=== PATIENT | female | born 1960 | race Caucasian/White ===

== ENCOUNTER 2018-05-21 09:18 | Outpatient (CLI) | payer OTHER ==
--- NOTE | 2018-05-21 09:40 | RAD ---
CHEST TWO VIEWS: History: Cough. Comparison: None. FINDINGS: There are sternotomy wires. Heart is enlarged and pulmonary vascular is prominent. There are pleural and parenchymal changes in the left lung base. Additionally, no diffuse interstitial opacification li shelley due to edema. No pneumothorax. IMPRESSION: Congestive heart failure. POS: [facility]
== END 2018-05-21 09:19 | disposition home or self-care (01) ==
LOC: BICRAD 09:18
PROVIDERS: ATTEND Physician Assistant Medical
DX: R05 Cough (principal); I25.2 Old myocardial infarction; I50.9 Heart failure, unspecified; Z95.1 Presence of aortocoronary bypass graft
CPT/HCPCS: 71046

== ENCOUNTER 2018-06-29 16:01 | Observation (INO) | payer BC, OTHER ==
[2018-06-29 17:18] LABS: #Basophils 0.1 thou/uL (0.0-0.2); #Eosinphils 0.4 thou/uL (0.0-0.7); #Lymphocytes 2.4 thou/uL (1.20-3.40); #Monocytes 0.8 thou/uL (0.11-0.59); #Neutrophils 6.2 thou/uL (1.40-6.50); %Basophils 0.5 % (0.0-1.0); %Eosinophils 3.8 % (0.0-10.0); %Lymphocytes 24.7 % (21.0-51.0); %Monocytes 7.8 % (0.0-10.0); %Neutrophils 63.1 % (42.0-75.0); Hemoglobin 12.8 g/dL (12.0-16.0); Mean Corpuscular HGB CONC 32.7 g/dL (32.0-36.0); Mean Corpuscular Hemoglobin 27.7 pg (27.0-31.0); Mean Corpuscular Volume 84.6 fL (78.0-98.0); Platelet Count 382 thou/uL (130-400); RBC Distribution Width 13.5 % (11.5-14.5); Red Blood Cell (RBC) Count 4.64 mill/uL (4.20-5.40); White Blood Cell (WBC) Count 9.8 thou/uL (4.8-10.8)
--- NOTE | 2018-06-29 17:32 | RAD ---
EXAM: Chest one view: HISTORY: Coughing, pop in right eye with right-sided headaches COMPARISON: 05/21/2018 FINDINGS: Postop midline sternotomy and surgical changes in the region of the left atrium. Heart size: Within normal limits. The lungs: Clear of acute process. No evidence for pneumonia, pleural effusion, acute edema, or pneumothorax, or other significant acute process. IMPRESSION: No significant acute intrathoracic disease. Resolution of the previous noted vascular congestion and pleural effusions and interstitial edema.
[2018-06-29 17:37] LABS: Bilirubin Negative (Negative); Blood, Urine Trace (Negative); Clarity CLEAR (Clear); Glucose, Urine (Dipstick) 250 mg/dL (Negative); Leukocyte Negative (Negative); Nitrite Negative (Negative); Protein, Urine (Dipstick) Negative (Neg-Trace); Specific Gravity, Urine 1.023 (1.002-1.036); Urobilinogen 0.2 mg/dL (0.2-1.0)
[2018-06-29 17:51] LABS: Bacteria/HPF None Seen HPF (None Seen); Hyaline Casts/LPF 4-6 HYALINE CAST LPF (0-3 Hyaline); Pathc Cast-AUWi Flag 0.68 (0-2.49); WBC/HPF 0-3 HPF (0-3)
--- NOTE | 2018-06-29 17:56 | CT ---
CT BRAIN 06/29/18 HISTORY: Right sided eye vision loss and right sided headache. COMPARISON: Comparison made to previous exam from 09/24/14. Noncontrast enhanced CT images of the brain obtained. The brain is unremarkable. No evidence of intracranial masses, hemorrhages, strokes or contusions see n. Ventricles are of normal size. IMPRESSION: Unremarkable CT brain. No acute intracranial pathology seen. POS: [facility]
[2018-06-29 18:03] LABS: ALT (SGPT) 13 U/L (8-55); AST (SGOT) 17 U/L (5-34); Albumin 4.5 g/dL (3.5-5.0); Alkaline Phosphatase 87 U/L (40-150); Anion Gap 15 mmol/L (10-20); BUN (Urea Nitrogen) 24 mg/dL (9.8-20.1); Bilirubin, Total 0.5 mg/dL (0.2-1.2); CK (CPK) 45 U/L (29-168); Calc. Creatinine Clearance 0 mL/min (70-130); Calcium 9.8 mg/dL (7.8-10.44); Carbon Dioxide 25 mmol/L (22-29); Chloride 103 mmol/L (98-107); Estimated GFR-MDRD 60; Globulin 3.2 g/dL (2.4-3.5); Glucose 62 mg/dL (70-105); Potassium 4.2 mmol/L (3.5-5.1); Protein, Total 7.7 g/dL (6.0-8.3); Sodium 139 mmol/L (136-145)
--- NOTE | 2018-06-29 18:26 | PDOC.FPRHP ---
- History of Present Illness Chief Complaint: right eye changes, R arm weakness History of Present Illness: 57 yo F with hx of DM1 presents to ED for R eye vision changes and R upper extremity weakness. Sxs started two weeks ago, after "coughing fit". Immediately after patient started seeing "red thread blood vessels" in her right eye. Thought she just bursted a blood vessel do didn't seek care until today. She denies ocular trauma, complete vision loss, but stated noticing difficulty seeing things out of R eye today. She has a hx of vitreous hemorrhage of the L eye due to poorly control DM1 at that time. In regards to her R arm weakness, this was noticed by PCP today in addition to R facial droop which was concerning and so she instructed her to come to the ED. Pt denies speech slurring but endorses difficulty finding words. In addition patient has presence of lower facial droop but she is unsure of how long these sxs have all been going on for. is unable to tell as well. She denies hx of prior stroke. Endorses headaches w/ photophobia ED Course: In ED, negative w/u for stroke - Allergies/Adverse Reactions Allergies Allergy/AdvReac Type Severity Reaction Status Date / Time erythromycin base Allergy Anaphylaxis Verified 09/24/14 21:48 morphine Allergy Verified 09/24/14 21:48 promethazine [From Phenergan] AdvReac Mild Headache Verified 06/30/18 00:04 - Home Medications Medication Instructions Recorded Confirmed Type Aspirin [Ecotrin Low Strength] 81 mg PO DAILY 09/24/14 06/30/18 History Atorvastatin Calcium [Lipitor] 20 mg PO DAILY 06/30/18 06/30/18 History Carvedilol 3.125 mg PO BID 06/30/18 06/30/18 History Ferrous Sulfate [Iron] 325 mg PO TID 06/30/18 06/30/18 History Furosemide [Lasix] 20 mg PO BID 06/30/18 06/30/18 History Insulin Aspart [Novolog] 0 units SC ASDIR 06/30/18 06/30/18 History Levothyroxine Sodium [Synthroid] 25 mcg PO DAILY 06/30/18 06/30/18 History Sacubitril/Valsartan 49/51 1 tab PO BID 06/30/18 06/30/18 History [Entresto 49 mg-51 mg Tablet] Spironolactone [Aldactone] 25 mg PO DAILY 06/30/18 06/30/18 History Ticagrelor [Brilinta] 90 mg PO BID 06/30/18 06/30/18 History - History PMHx: CAD, Failed CABG with stent x3, CA, CHF, hypothyroidism PSHx: Cholecystectomy, BTL, hx of ureteral stent (now removed), Impella FHx:extensive CAD in family Social: denies t/e/d - Review of Systems General: denies: fever/chills, weight/appetite/sleep changes, night sweats Eyes: reports: vision changes (floaters in R eye, dec vision), other. denies: eye pain ENT: denies: rhinorrhea Respiratory: denies: cough, congestion, shortness of breath Cardiovascular: denies: chest pain, palpitation, edema Gastrointestinal: denies: nausea, vomiting Skin: denies: lesions Musculoskeletal: denies: pain, tenderness Neurological: reports: weakness Psychological: reports: other (difficulty with word finding) - Vital signs BP: [125/62] HR: [66] RR: [19] Tmax: [98.2] Pox: [98]% on [RA] Wt: [66kg] - Physical Exam Constitutional: NAD, awake, alert and oriented, well developed HEENT: normocephalic and atraumatic, PERRLA, EOMI, conjunctiva clear, no scleral icterus, MMM -HEENT: dec. visual acuity in upper and peripheral kaufman R lower facial droop Dec sensation in R temporal face Neck: supple, trachea midline Chest: no-tender to palpation Heart: RRR, normal S1/S2, no murmurs/rubs/gallops Lungs: CTAB, no respiratory distress Abdomen: soft, non-tender, bowel sounds present Musculoskeletal: normal structure, normal tone -Musculoskeletal: 5/5 in all extremities Neurological: no focal deficit Skin: no rash/lesions, good turgor FMR H&P: Results - Labs Result Diagrams: 06/29/18 17:12 06/30/18 04:41 Lab results: WBC 9.8 thou/uL (4.8-10.8) 06/29/18 17:12 Hgb 12.8 g/dL (12.0-16.0) 06/29/18 17:12 Hct 39.3 % (36.0-47.0) 06/29/18 17:12 MCV 84.6 fL (78.0-98.0) 06/29/18 17:12 Plt Count 382 thou/uL (130-400) 06/29/18 17:12 Neutrophils % 63.1 % (42.0-75.0) 06/29/18 17:12 Sodium 139 mmol/L (136-145) 06/29/18 17:12 Potassium 4.2 mmol/L (3.5-5.1) 06/29/18 17:12 Chloride 103 mmol/L (98-107) 06/29/18 17:12 Carbon Dioxide 25 mmol/L (22-29) 06/29/18 17:12 BUN 24 mg/dL (9.8-20.1) H 06/29/18 17:12 Creatinine 0.95 mg/dL (0.6-1.1) 06/29/18 17:12 Glucose 62 mg/dL (70-105) L 06/29/18 17:12 Calcium 9.8 mg/dL (7.8-10.44) 06/29/18 17:12 Total Bilirubin 0.5 mg/dL (0.2-1.2) 06/29/18 17:12 AST 17 U/L (5-34) 06/29/18 17:12 ALT 13 U/L (8-55) 06/29/18 17:12 Alkaline Phosphatase 87 U/L (40-150) 06/29/18 17:12 Creatine Kinase 45 U/L (29-168) 06/29/18 17:12 Serum Total Protein 7.7 g/dL (6.0-8.3) 06/29/18 17:12 Albumin 4.5 g/dL (3.5-5.0) 06/29/18 17:12 Urine Ketones Negative mg/dL (Negative) 06/29/18 17:06 Urine Blood Trace (Negative) H 06/29/18 17:06 Urine Nitrite Negative (Negative) 06/29/18 17:06 Ur Leukocyte Esterase Negative (Negative) 06/29/18 17:06 Urine RBC 4-6 HPF (0-3) 06/29/18 17:06 Urine WBC 0-3 HPF (0-3) 06/29/18 17:06 Ur Squamous Epith Cells 4-6 HPF (0-3) H 06/29/18 17:06 Urine Bacteria None Seen HPF (None Seen) 06/29/18 17:06 - Radiology Interpretation CT scan - head Status: image reviewed by me, report reviewed by me Additional comment: negative for ICH Chest x-ray Status: report reviewed by me FMR H&P: A/P - Problem List (1) Change in vision Current Visit: Yes Status: Acute Code(s): H53.9 - UNSPECIFIED VISUAL DISTURBANCE (2) Heart failure Current Visit: Yes Status: Acute Code(s): I50.9 - HEART FAILURE, UNSPECIFIED (3) History of CA (myocardial infarction) Current Visit: Yes Status: Acute Code(s): I25.2 - OLD MYOCARDIAL INFARCTION (4) Failed CABG (coronary artery bypass graft) Current Visit: Yes Status: Acute Code(s): T82.218A - [facility] COMPL OF CORONARY ARTERY BYPASS GRAFT, INIT ENCNTR (5) History of coronary artery stent placement Current Visit: Yes Status: Acute Code(s): Z95.5 - PRESENCE OF CORONARY ANGIOPLASTY IMPLANT AND GRAFT (6) CAD (coronary artery disease) Current Visit: No Status: Acute Code(s): I25.10 - ATHSCL HEART DISEASE OF [place] CORONARY ARTERY W/O ANG PCTRS (7) HTN (hypertension) Current Visit: No Status: Acute Code(s): I10 - ESSENTIAL (PRIMARY) HYPERTENSION (8) Type 1 diabetes mellitus Current Visit: No Status: Acute - Plan #R facial droop, vision changes -Arm/leg weakness resolved on my exam. Acute vs. chronic presence of R facial droop. CTH negative, however cannot r/o ischmemic stroke in light of patient's multiple risk factors -A1c & lipid panel to risk stratify -MRI brain in AM -ASA, statin, neuro checks, pt not hypertensive in ED, home antiplatelet -If w/u neg. consider complex migraine #R eye: dec in acuity -Ddx: vitreous hemorrhage -Talked with Dr. Bolaños who recommended outpt follow up upon discharge #Hx of CAD with stent placement -Continue home lasix & spironolactone #HF -Fluid restrict diet #DM1 -Continue using home insulin pump, but continue with accuchecks ACHS -CC diet #Hypothyroidism -Continue home meds dvt ppx: SCD gi ppx: not indicated PCP: Dr. Singleton from [facility] Dispo: <[address] Arita FMR H&P: Upper Level - Pertinent history 57 yo CF with PMH T1DM, previous CA/CAD s/p failed 3vCABG and stent x3 placement , and HTN presenting with vision changes. Pt notes that two weeks ago she was coughing, felt a pop in her right eye, saw some floaters and notes continued blurred vision since that time. Pt denies pain, complete vision loss, or darkening of kaufman. Pt then states she had some right arm weakness, right sided facial droop, and decreased facial sensation at PCP's office today. Highest NIH score in the ER was 0. - Pertinent findings VSS Gen: pleasant in NAD CV: RRR no murmur Resp: CTAB Neuro: mild right facial droop, strength 5/5 all extr - Plan Date/Time: 06/29/181825 I, Guanaco Krueger MD PGY3, have evaluated this patient and agree with findings/ plan as outlined by improvement intern resident. Pertinent changes/additions are listed here. 1. Right hemianopsia possibly 2/2 CVA -Pt presents with right sided hemianopsia and right sided facial droop. Initial CT brain negative for acute process. -Will admit pt to stroke floor and obtain MRI brain. -Consider ophthalmology consultation as symptoms may be secondary to ocular pathology. See improvement intern note for chronic medical problems. FULL code PPx: Lovenox for VTE, no GI indicated. disposition: Admit to stroke observation for anticipated length of stay less than two midnights, pending clinical course. Addendum - Attending - Attending Attestation Date/Time: 06/29/18 [id number] I personally evaluated the patient and discussed the management with Dr. Diaz I agree with the History, Examination, Assessment and Plan documented above with any addition or exceptions noted below. 57 yo IDDM right handed female sent in by PCP to ER for further evaluation right eye visual loss and right sided facial weakness for last 2 weeks. Patient decided to seek medical attention as she was not getting better. Care delayed due to wanting to avoid being hospitalized. Patient reports coughing hard 2 weeks ago and "felt something in her eye" then diminished visual acuity and seeing "thread" in upper mid visual field she has had photophobia and headache. Patient notable vitreous hemorrhage [place] in 2015 with similar presentation and hospitalization r/o left sided CVA . Upon further questioning of patient she endorses mental confusion with slight anomic aphasia and loss sensation temporal right side. At time exam no extremity drift or weakness noted however ER reports drift right arm . Exam facial asymmetry mild right facial paralysis. PMHX; IDDM since early 20's had CA and stent placement 10 years ago , 9 months ago [facility] had failed 3V CABG then stent placement and massive post operative CA requiring impella device. Patient with insulin pump with good BS control continous glucose monitor most recnt HgA1c 7.0. Patient with blunted hypogylcemic symptoms by history. Patient Established with Dr Swanson currently on Brilinta, ASA, aldactone,entresto,furosemide patient relates an recent EF <25% and will be considered for life vest. Patient also relates history scar tissue left lung and increased susceptibility to Pneumonia consider Pneumovax 23 and [id number] plus annual flu vaccine if not current. Patient to stroke unit for continued observation rec suspend insulin pump if needs NPO status rec am MRI brain and orbit anticipate will need urgent Ophthalmology consult for office exam when cleared from CVA. Some symptoms may be related to vitreous bleed with secondary complex migraine verse CVA or stroke mimic. Direct eye exam non remarkable to me however strongly suspect probable vitreous hemorrhage discussed with Ophthalmology and will have urgent outpatient f/u pending MRI result.
[2018-06-29] MEDS ORDERED: Acetaminophen 325 MG TAB ONE (22:43)
[2018-06-29 23:56] VITALS: BMI 27.5
[2018-06-30] MEDS ORDERED: INSULIN ASPART SC SCH (00:30)
[2018-06-30 05:34] LABS: Anion Gap 11 mmol/L (10-20); BUN (Urea Nitrogen) 25 mg/dL (9.8-20.1); Calc. Creatinine Clearance 69 mL/min (70-130); Calcium 9.4 mg/dL (7.8-10.44); Carbon Dioxide 28 mmol/L (22-29); Cardiac Risk 3.6 (Less than 4.5); Chloride 102 mmol/L (98-107); Cholesterol 118 mg/dl (< 200 Desired); Estimated GFR-MDRD 63; Glucose 149 mg/dL (70-105); HDL Cholesterol 33 mg/dL (>60 Neg Risk); LDL Cholesterol, Calculated 59 mg/dL; Potassium 3.9 mmol/L (3.5-5.1); Sodium 137 mmol/L (136-145); Triglycerides 129 mg/dL (Less than 150)
[2018-06-30] MEDS ORDERED: Levothyroxine Sodium 25 MCG TAB PO SCH (06:00)
--- NOTE | 2018-06-30 06:54 | PDOC.FM ---
- Subjective Subjective: Ms. Matute notes continued symptoms. Continues to have R sided face/eye pain. She has had this for two weeks she said. Continued decreased sensation to R side of face. - Objective MAR Reviewed: Yes Vital Signs & Weight: Vital Signs (12 hours) Temp Pulse Resp BP Pulse Ox 06/30/18 04:00 97.5 F L 73 18 127/58 L 96 06/29/18 23:30 98.2 F 66 19 125/62 98 Weight Weight 66.026 kg I&O: 06/28/18 06/29/18 06/30/18 06:59 06:59 06:59 Intake Total 200 Balance 200 Result Diagrams: 06/29/18 17:12 06/30/18 04:41 Phys Exam - Physical Examination Constitutional: NAD HEENT: PERRLA Respiratory: clear to auscultation bilateral Cardiovascular: RRR, no significant murmur Gastrointestinal: soft, non-tender, positive bowel sounds Musculoskeletal: no edema decreased sensation R V2 face, mild R lip droop, BUE 5/5 strength Psychiatric: normal affect Skin: normal turgor Dx/Plan (1) Change in vision Code(s): H53.9 - UNSPECIFIED VISUAL DISTURBANCE Status: Acute (2) Heart failure Code(s): I50.9 - HEART FAILURE, UNSPECIFIED Status: Acute (3) CAD (coronary artery disease) Code(s): I25.10 - ATHSCL HEART DISEASE OF [place] CORONARY ARTERY W/O ANG PCTRS Status: Acute (4) HTN (hypertension) Code(s): I10 - ESSENTIAL (PRIMARY) HYPERTENSION Status: Acute (5) Hypothyroidism Code(s): E03.9 - HYPOTHYROIDISM, UNSPECIFIED Status: Acute (6) Type 1 diabetes mellitus Status: Acute - Plan Plan: R facial droop, vision changes -Arm/leg weakness resolved on exam -A1c 7.0. -MRI brain pending -ASA, statin, neuro checks -Differential includes trigeminal neuralgia, migraine secondary to vision change , vitreous hemorrhage -Dr. Bolaños recommended outpt follow up upon discharge Hx of CAD with stent placement -Continue home lasix & spironolactone HF -Fluid restrict diet DM1 -Continue using home insulin pump, but continue with accuchecks ACHS -CC diet Hypothyroidism -Continue home meds dvt ppx: SCD gi ppx: not indicated PCP: Dr. Singleton from [facility] Dispo: possible discharge pending MRI Addendum - Attending - Attending Attestation Date/Time: 06/30/18 [id number] I personally evaluated the patient and discussed the management with Dr. Garcia I agree with the History, Examination, Assessment and Plan documented above with any addition or exceptions noted below. MRI negative. Headache improved with tylenol #3. Acute vision changes- follow-up scheduled with Dr. Manan Bolaños for 3 pm this afternoon. Most likely the source of her headache. No neuro deficits. R frontal headache- started at the same time as vision changes. Not consistent with trigeminal neuralgia or temporal arteritis. No history of migraine headaches in the past. Will give short course of tylenol#3 and will need f/u with PCP.
[2018-06-30] MEDS ORDERED: Lorazepam 0.5 MG TAB PO SCH (07:00)
[2018-06-30] MEDS ORDERED: Ibuprofen 800 MG TAB PO PRN (07:01)
[2018-06-30] MEDS ORDERED: Acetaminophen 500 MG TAB PO PRN (07:01)
[2018-06-30] MEDS ORDERED: Acetaminophen/Codeine 30-300mg Tablet PO SCH ×2 (07:45→13:45)
[2018-06-30] MEDS ORDERED: Atorvastatin Calcium 20 MG TAB PO SCH (09:00)
[2018-06-30] MEDS ORDERED: TICAGRELOR 90 MG TABLET PO SCH (09:00)
[2018-06-30] MEDS ORDERED: Ferrous Sulfate 325 MG TAB PO SCH (09:00)
[2018-06-30] MEDS ORDERED: Carvedilol 3.125 MG TAB PO SCH (09:00)
[2018-06-30] MEDS ORDERED: Sacubitril 49 MG/Valsartan 51 MG TABLET PO SCH (09:00)
[2018-06-30] MEDS ORDERED: Furosemide 20 MG TAB PO SCH (09:00)
[2018-06-30] MEDS ORDERED: Spironolactone 25 MG TAB PO SCH (09:00)
[2018-06-30] MEDS ORDERED: Aspirin 81 mg Enteric Coated Tablet PO SCH (09:00)
--- NOTE | 2018-06-30 10:54 | MRI ---
MRI BRAIN WITHOUT CONTRAST: HISTORY: Stroke. Right sided headache and vision loss CORRELATION: CT scan from 06/29/2018. FINDINGS: No restricted diffusion is seen. There are a few foci of T2 prolongation in the periventricular white matter, consistent with mild chronic small vessel ischemic disease. The ventricular size is appropriate and the basilar cisterns are patent. No evidence of acute infarct, hemorrhage, midline shift or abnormal extra-axial fluid collections is seen. No tonsillar herniation is seen. There is mild mucosal disease in the paranasal sinuses. IMPRESSION: No evidence of acute intracranial process.
[2018-06-30 12:22] VITALS: BP 104/57; TEMP 97.6
--- NOTE | 2018-07-01 10:46 | DIS ---
DATE OF ADMISSION: 06/29/2018 DATE OF DISCHARGE: 06/30/2018 RESIDENT: Mikala Garcia DO. ADMITTING ATTENDING: Nick Arita MD. DISCHARGE ATTENDING: Lucille Singleton MD. CONSULT: None. PROCEDURES: 1. On 06/29/2018, chest x-ray showed no significant acute intrathoracic disease. 2. Brain CT showed unremarkable CT brain, no acute intracranial pathology seen. 3. On 06/30/2018, brain MRI showed no evidence of acute intracranial process. PRIMARY DIAGNOSIS: Vision changes, possibly secondary to vitreous hemorrhage with definitive workup pending. SECONDARY DIAGNOSES: 1. Coronary artery disease with stents. 2. Congestive heart failure. 3. Type 1 diabetes. 4. Hypothyroidism. DISCHARGE MEDICATIONS: 1. Aspirin 81 mg p.o. daily. 2. Lasix 20 mg p.o. b.i.d. 3. Atorvastatin 20 mg p.o. daily. 4. Iron 325 mg p.o. t.i.d. 5. Spironolactone 25 mg p.o. daily. 6. Entresto 49 mg/51 mg tablet one tab p.o. b.i.d. 7. Carvedilol 3.125 mg p.o. b.i.d. 8. Synthroid 25 mcg p.o. daily. 9. Brilinta 90 mg p.o. b.i.d. 10. Insulin pump. 11. Tylenol with codeine No.3 of 300 mg/30 mg one tablet p.o. q.6 hours p.r.n. HISTORY OF PRESENT ILLNESS: A 57-year-old female presented to the ED for right eye vision changes and right upper extremity weakness in which the symptoms started 2 weeks prior. There is also concern for a right-sided lower facial droop. She endorsed decreased visual acuity in upper and peripheral right eye field, decreased sensation in right V2 distribution of face and a mild right facial droop was initially apparent on exam but then resolved. Weakness resolved prior to our exam. The patient was admitted for a TIA, stroke rule out. Findings of these images are stated above. Additionally during hospitalization, the patient noted a headache in association with her vision changes. Dr. Bolaños, Ophthalmology was consulted from the ED and case was discussed and he recommended outpatient followup for vision. Stroke and TIA were ruled out and the patient was set up for a followup visit with Dr. Bolaños, the afternoon of discharge for further evaluation. DISPOSITION: Stable. DISCHARGE INSTRUCTIONS: 1. Location: Home. 2. Diet: Diabetic and heart healthy. ACTIVITY: As tolerated. FOLLOWUP: 1. Follow up with Dr. Bolaños. 2. Follow up with primary care provider in 3 days. Job ID: [id number]
== END 2018-06-30 13:55 | disposition home or self-care (01) ==
LOC: ERS 16:01 → 2SE 21:14
PROVIDERS: ADMIT Family Medicine; ATTEND Family Medicine
DX: H53.47 Heteronymous bilateral field defects (principal); R53.1 Weakness; R29.810 Facial weakness; E10.9 Type 1 diabetes mellitus without complications; Z88.5 Allergy status to narcotic agent; I25.10 Atherosclerotic heart disease of native coronary artery without angina pectoris; I25.2 Old myocardial infarction; I11.0 Hypertensive heart disease with heart failure; I50.9 Heart failure, unspecified; E03.9 Hypothyroidism, unspecified; Z88.8 Allergy status to other drugs, medicaments and biological substances; Z79.82 Long term (current) use of aspirin; Z79.899 Other long term (current) drug therapy; Z79.02 Long term (current) use of antithrombotics/antiplatelets; Z95.5 Presence of coronary angioplasty implant and graft; Z96.41 Presence of insulin pump (external) (internal)
CPT/HCPCS: 36415; 36416; 70450; 70551; 71045; 80048; 80053; 80061; 81003; 81015; 82550; 83036; 84484; 85025; 93005; 94760; G0378

== ENCOUNTER 2019-01-12 11:34 | Observation (INO) | payer BC ==
[2019-01-12 12:25] LABS: #Basophils 0.1 thou/uL (0.0-0.2); #Eosinphils 0.3 thou/uL (0.0-0.7); #Monocytes 0.7 thou/uL (0.11-0.59); #Neutrophils 8.2 thou/uL (1.40-6.50); %Basophils 0.7 % (0.0-1.0); %Lymphocytes 17.4 % (21.0-51.0); %Monocytes 6.5 % (0.0-10.0); %Neutrophils 72.4 % (42.0-75.0); Hemoglobin 11.7 g/dL (12.0-16.0); Mean Corpuscular Volume 84.8 fL (78.0-98.0); Mean Platelet Volume 6.8 fL (7.4-10.4); Platelet Count 411 thou/uL (130-400); RBC Distribution Width 13.7 % (11.5-14.5); Red Blood Cell (RBC) Count 4.19 mill/uL (4.20-5.40); White Blood Cell (WBC) Count 11.3 thou/uL (4.8-10.8)
[2019-01-12 12:39] LABS: ALT (SGPT) 19 U/L (8-55); AST (SGOT) 19 U/L (5-34); Albumin 4.4 g/dL (3.5-5.0); Alkaline Phosphatase 98 U/L (40-110); Anion Gap 12 mmol/L (10-20); BUN (Urea Nitrogen) 13 mg/dL (9.8-20.1); Bilirubin, Total 1.2 mg/dL (0.2-1.2); Calc. Creatinine Clearance 0 mL/min (70-130); Calcium 9.4 mg/dL (7.8-10.44); Carbon Dioxide 30 mmol/L (22-29); Chloride 104 mmol/L (98-107); Estimated GFR-MDRD 54; Globulin 3.5 g/dL (2.4-3.5); Glucose 129 mg/dL (70-105); Protein, Total 7.9 g/dL (6.0-8.3); Sodium 142 mmol/L (136-145)
--- NOTE | 2019-01-12 13:16 | RAD ---
CHEST 1 VIEW: Date: 01/12/19 HISTORY: Dyspnea. COMPARISON: 06/29/18. FINDINGS: Cardiac silhouette is magnified and enlarged. Pulmonary vasculature more engorged than on the prior s tudy with widespread reticulonodular interstitial prominence. Mediastinum is midline with postoperati ve changes. No lobar consolidation or evidence of pneumothorax. IMPRESSION: Cardiomegaly with mild pulmonary vascular congestion. Consider mild CHF. POS: [facility]
[2019-01-12] MEDS ORDERED: Furosemide 40 MG/4 ML VIAL ONE (14:24)
[2019-01-12 15:33] LABS: Troponin I Less than 0.010 ng/mL (< 0.028)
[2019-01-12 16:16] VITALS: BMI 27.1
[2019-01-12] MEDS ORDERED: Acetaminophen 650 MG Suppository PR PRN (17:23)
[2019-01-12] MEDS ORDERED: Dextrose 5% in Water 1,000 ML IV PRN (17:27)
[2019-01-12] MEDS ORDERED: HumaLOG 300 UNITS/3 ML VIAL SC PRN ×2 (17:27)
[2019-01-12] MEDS ORDERED: Dextrose 50% Abboject 50 ML SYRINGE SLOW IVP PRN (17:27)
--- NOTE | 2019-01-12 18:05 | PDOC.HHP ---
Hospitalist HPI - History of Present Illness chest pain and shortness of breath History of Present Illness: Ms. Matute is a pleasant 58 year old woman with known history of CAD and CHF who presents with complaints of increasing chest discomfort and shortness of breath for the last week. She states her symptoms started after receiving the Shingles vaccine, but she feels it may have been developing a few days before then. Reports chest discomfort at baseline since undergoing a CABG 1.5 years ago, but more recently it has become worse. Normally it is in the center of her chest and she rates it at a 2/10 in severity with some associated SOB on exertion. This has progressively worsened for the last few days, last night it became severe. She states there was a stabbing along with the pressure again in the center of her chest to her left shoulder and into her back. The pain was an 7/ 10 in severity. It was intermittent and she found it difficult to breathe having to stand by her bed and lean onto her bed. When laying on her back or on her left side she felt a choking sensation. This morning the pain recurred and she was prompted by her daughter to come in to the ED. Since arriving and receiving Lasix in the ED, she noted improved with her breathing and discomfort. Currently it is a 4/10 in severity. She does feel that it is starting to come back with increasing coughing. For the last couple of days she has been coughing up frothy sputum. Her cough improved this morning and is now returning. She follows with Dr. Swanson and has been compliant with her Lasix, however recalls having salty coup in the last few days. ED Course: In the ED she received 40 mg of IV Lasix. She had 20 mg PO in the morning as usual. Labs done in the ED showed a WCC of 11.3, Hgb 11.7, Platelets of 411, Neutrophils 72.4%. BNP was elevated at 1,1547. Remaining labs unremarkable. CXR done showed cardiomegaly with mild pulmonary vascular congestion suggestive of mild CHF. Hospitalist ROS - Review of Systems Constitutional: reports: malaise, other (reports feeling warm yesterday but did not check temp. No fever on arrival.) Eyes: denies: pain, vision change, conjunctivae inflammation, eyelid inflammation, redness, other ENT: denies: ear pain, ear discharge, nose pain, nose discharge, nose congestion , mouth pain, mouth swelling, throat pain, throat swelling, other Respiratory: reports: cough, shortness of breath (at rest and with exertion), sputum (white frothy sputum) Cardiovascular: reports: chest pain, orthopnea Gastrointestinal: reports: nausea, vomiting (Reports vomiting is triggered by coughing fits, and she brings up mucus), abdominal pain (discomfort due to coughing.) Genitourinary: denies: dysuria, frequency, incontinence, hematuria, retention, other Musculoskeletal: reports: shoulder pain, back pain. denies: neck pain, arm pain , hand pain, leg pain, foot pain, other Skin: denies: rash, lesions, ning, bruising, other Neurological: denies: weakness, numbness, incoordination, change in speech, confusion, seizures, other Hospitalist History - Past Medical History Cardiac: reports: CAD, CHF, HTN, TN (x2) Endocrine: reports: Diabetes (insulin dependent, type I), Hypothyroidism - Past Surgical History Past Surgical History: reports: Cholecystectomy, CABG (x 4 vessels in 09/2017), Other (Renal artery stent Cardiac stent) Other Surgical History: D&C due to miscarriage - Family History Family History: reports: cardiac disorder (CAD in her father) - Social History Smoking Status: Never smoker Alcohol: reports: Rare Drugs: reports: none Living Situation: With Family Activity level: independent ambulation - Exam General Appearance: NAD Eye: PERRL, anicteric sclera ENT: normocephalic atraumatic, no oropharyngeal lesions, moist mucosa Neck: supple, symmetric, no lymphadenopathy Heart: RRR, no murmur, no gallops, no rubs, normal peripheral pulses Respiratory: no wheezes, no rales (at bilateral bases), normal chest expansion, no tachypnea Gastrointestinal: soft, non-tender, non-distended, normal bowel sounds, no palpable masses, no hepatomegaly, no guarding, no rigidity Gastrointestinal - other findings: slight swelling, per patient this happens when she accumulates fluid Extremities: no cyanosis, no clubbing, no edema Skin: normal turgor, no lesions, no rashes Neurological: cranial nerve grossly intact, normal sensation to touch, no weakness Musculoskeletal: normal tone, normal strength, no muscle wasting Psychiatric: normal affect, normal behavior, A&O x 3 Hospitalist Results - Labs Result Diagrams: 01/12/19 12:05 01/12/19 12:05 Lab results: WBC 11.3 thou/uL (4.8-10.8) H 01/12/19 12:05 Hgb 11.7 g/dL (12.0-16.0) L 01/12/19 12:05 Hct 35.6 % (36.0-47.0) L 01/12/19 12:05 MCV 84.8 fL (78.0-98.0) 01/12/19 12:05 Plt Count 411 thou/uL (130-400) H 01/12/19 12:05 Neutrophils % 72.4 % (42.0-75.0) 01/12/19 12:05 Sodium 142 mmol/L (136-145) 01/12/19 12:05 Potassium 4.0 mmol/L (3.5-5.1) 01/12/19 12:05 Chloride 104 mmol/L (98-107) 01/12/19 12:05 Carbon Dioxide 30 mmol/L (22-29) H 01/12/19 12:05 BUN 13 mg/dL (9.8-20.1) 01/12/19 12:05 Creatinine 1.05 mg/dL (0.6-1.1) 01/12/19 12:05 Glucose 129 mg/dL (70-105) H 01/12/19 12:05 Calcium 9.4 mg/dL (7.8-10.44) 01/12/19 12:05 Total Bilirubin 1.2 mg/dL (0.2-1.2) 01/12/19 12:05 AST 19 U/L (5-34) 01/12/19 12:05 ALT 19 U/L (8-55) 01/12/19 12:05 Alkaline Phosphatase 98 U/L (40-110) 01/12/19 12:05 Troponin I Less than 0.010 ng/mL (< 0.028) 01/12/19 14:59 B-Natriuretic Peptide 1154.7 pg/mL (0-100) H 01/12/19 12:05 Serum Total Protein 7.9 g/dL (6.0-8.3) 01/12/19 12:05 Albumin 4.4 g/dL (3.5-5.0) 01/12/19 12:05 - EKG Interpretation EKG: EKG showed NSR, bilateral atrial enlargement type changes. prolonged QTC Hospitalist H&P A/P - Problem (1) Chest pain Code(s): R07.9 - CHEST PAIN, UNSPECIFIED Status: Acute (2) CHF exacerbation Code(s): I50.9 - HEART FAILURE, UNSPECIFIED Status: Acute (3) CAD (coronary artery disease) Code(s): I25.10 - ATHSCL HEART DISEASE OF [place] CORONARY ARTERY W/O ANG PCTRS Status: Chronic (4) HTN (hypertension) Code(s): I10 - ESSENTIAL (PRIMARY) HYPERTENSION Status: Chronic (5) History of TN (myocardial infarction) Code(s): I25.2 - OLD MYOCARDIAL INFARCTION Status: Chronic (6) History of coronary artery stent placement Code(s): Z95.5 - PRESENCE OF CORONARY ANGIOPLASTY IMPLANT AND GRAFT Status: Chronic (7) Hypothyroidism Code(s): E03.9 - HYPOTHYROIDISM, UNSPECIFIED Status: Chronic (8) Type 1 diabetes mellitus Status: Chronic - Plan Plan: Continue to trend troponins. Consult Dr. Swanson. Continue diuresis and monitor renal function. Monitor glucose and initiate sliding scale. Add-on lactic acid and procalcitonin. Respiratory viral panel. Monitor WCC. UA/UCx. Resume home medications once verified. DVT Prophylaxis with mechanical SCDs. GI Prophylaxis with famotidine. Obtain most recent Echo (last one on file is from 2014, EF 65-70% with mild TR noted). CODE STATUS: FULL Surrogate decision maker is her Vineet Matute.
[2019-01-12] MEDS: Acetaminophen 325 MG TAB PO PRN (18:15)
[2019-01-12] MEDS ORDERED: Benzonatate 100 MG CAP PO PRN (18:22)
[2019-01-12 18:50] LABS: Troponin I Less than 0.010 ng/mL (< 0.028)
[2019-01-12] MEDS: Carvedilol 3.125 MG TAB PO SCH (20:24)
[2019-01-12] MEDS: Famotidine 20 MG TAB PO SCH (20:25)
[2019-01-12] MEDS ORDERED: TICAGRELOR 90 MG TABLET PO SCH (21:00)
[2019-01-12] MEDS ORDERED: Famotidine/PF 20 mg/2ml Vial SLOW IVP SCH (21:00)
[2019-01-12] MEDS ORDERED: Lidocaine 5% Patch TD SCH (21:00)
[2019-01-12] MEDS ORDERED: traMADol HCl 50 MG TAB PO PRN (21:19)
[2019-01-12] MEDS: PATIENT'S HOME MEDICATION PO SCH (21:28)
[2019-01-12] MEDS ORDERED: Nitroglycerin 0.2mg/Hour PATCH TD SCH (22:00)
--- NOTE | 2019-01-12 23:04 | CON ---
DATE OF CONSULTATION: HISTORY OF PRESENT ILLNESS: Alana Matute is a 58-year-old white female, who in September 2017, underwent a CABG followed by myocardial infarction and stent placement. Apparently, she was quite ill with need for an Impella. This was in [facility]. She ultimately moved to [place] and has been followed by Dr. Swanson. In August 2018, she underwent Cardiolite testing, which revealed a scar to the anterolateral wall, but no evidence of ischemia. Also echo revealed ejection fraction of 30% to 35% with [id number] mitral regurgitation, hypokinesis/akinesis of the apex and anterior wall, severe elevated right ventricular systolic pressure. There is no evidence for diastolic dysfunction. She states that she is weak all the time and many days has a dull constant ache in her chest. Over the last several days, she has had increased exertional shortness of breath and has gained approximately 7 pounds. She has developed PND and had to sleep in a chair. She also states that at times when she is supine in bed, she would have a sharp stabbing pain in the central part of her chest that radiates to her back that is pleuritic in nature and lasts for 1-2 minutes. She came today to the office for that history and was sent to the emergency room. She has been given intravenous Lasix and states that her breathing has improved. At times with her shortness of breath, she will have nausea and vomiting. PAST MEDICAL HISTORY: Remarkable for coronary artery disease, hypertension, myocardial infarction, congestive heart failure, diabetes, hypothyroidism. PAST SURGICAL HISTORY: Cholecystectomy, CABG x4 in September 2017, renal artery stent, coronary artery stent and oophorectomy. SOCIAL HISTORY: She does not smoke. FAMILY HISTORY: Father had coronary artery disease. REVIEW OF SYSTEMS: Ten point review of systems unremarkable except as noted above. MEDICATIONS: 1. Aspirin 81 mg p.o. daily. 2. Brilinta 90 mg b.i.d. 3. Atorvastatin 20 daily. 4. Carvedilol 3.125 b.i.d. 5. Furosemide 20 b.i.d. 6. Insulin. 7. Synthroid 25 mcg daily. 8. Entresto 49/51 b.i.d. 9. Aldactone 25 daily. ALLERGIES: MORPHINE, PHENERGAN AND ERYTHROMYCIN. PHYSICAL EXAMINATION: VITAL SIGNS: Blood pressure 129/70, pulse 82. HEENT PERRL. NECK: Supple. CHEST: Clear. CARDIAC: S1 and S2 normal without any S3, S4, no murmurs. ABDOMEN: Normal bowel sounds without tenderness or organomegaly. EXTREMITIES: Revealed no clubbing, cyanosis, or edema. NEUROLOGIC: Grossly intact. IMAGIN. EKG reveals normal sinus rhythm with low voltage, nonspecific ST-T wave changes. 2. Chest x-ray revealed increased pulmonary vascularity and cardiomegaly. LABORATORY DATA: Hemoglobin 11.7, hematocrit 35.6, white count 33135, platelets 411,000. Sodium 142, potassium 4.0, chloride 104, carbon dioxide 30, BUN 13, creatinine 1.05. BNP 1154.7. Troponin I is normal. IMPRESSION: 1. Ischemic cardiomyopathy with increased pulmonary vascularity on chest x-ray. She had been given intravenous diuretics and has improvement in her dyspnea. 2. Status post coronary bypass grafting x4 with abrupt closure of vascular surgery with need for emergent stent placement. 3. Hypertension. 4. Hypercholesterolemia. 5. Hypothyroidism. 6. Positive family history. PLAN: The patient will continue to be diuresed. Fasting lipid profile will be obtained in the morning. Hopefully within one or two days she may be discharged. Job ID: [id number]
[2019-01-13] MEDS ORDERED: Levothyroxine Sodium 25 MCG TAB PO SCH (06:00)
[2019-01-13] MEDS: Acetaminophen 325 MG TAB PO PRN (06:10)
[2019-01-13] MEDS: Furosemide 40 MG/4 ML VIAL SLOW IVP SCH ×2 (06:11→13:24)
[2019-01-13 06:32] LABS: #Basophils 0.1 thou/uL (0.0-0.2); #Eosinphils 0.3 thou/uL (0.0-0.7); #Lymphocytes 1.8 thou/uL (1.20-3.40); #Monocytes 0.7 thou/uL (0.11-0.59); #Neutrophils 5.5 thou/uL (1.40-6.50); %Basophils 0.7 % (0.0-1.0); %Eosinophils 3.9 % (0.0-10.0); %Lymphocytes 21.6 % (21.0-51.0); %Monocytes 8.1 % (0.0-10.0); %Neutrophils 65.7 % (42.0-75.0); Hemoglobin 11.1 g/dL (12.0-16.0); Mean Corpuscular HGB CONC 31.8 g/dL (32.0-36.0); Mean Corpuscular Hemoglobin 26.8 pg (27.0-31.0); Mean Corpuscular Volume 84.3 fL (78.0-98.0); Mean Platelet Volume 6.6 fL (7.4-10.4); Platelet Count 388 thou/uL (130-400); RBC Distribution Width 13.8 % (11.5-14.5); Red Blood Cell (RBC) Count 4.15 mill/uL (4.20-5.40); White Blood Cell (WBC) Count 8.3 thou/uL (4.8-10.8)
[2019-01-13 06:46] LABS: Anion Gap 14 mmol/L (10-20); BUN (Urea Nitrogen) 18 mg/dL (9.8-20.1); Calc. Creatinine Clearance 67 mL/min (70-130); Calcium 9.2 mg/dL (7.8-10.44); Carbon Dioxide 28 mmol/L (22-29); Cardiac Risk 3.9 (Less than 4.5); Chloride 104 mmol/L (98-107); Cholesterol 124 mg/dl (< 200 Desired); Estimated GFR-MDRD 62; Glucose 73 mg/dL (70-105); HDL Cholesterol 32 mg/dL (>60 Neg Risk); LDL Cholesterol, Calculated 75 mg/dL; Magnesium 2.1 mg/dL (1.6-2.6); Potassium 3.7 mmol/L (3.5-5.1); Sodium 142 mmol/L (136-145); Triglycerides 87 mg/dL (Less than 150)
[2019-01-13] MEDS ORDERED: TICAGRELOR 90 MG TABLET PO SCH (09:00)
[2019-01-13] MEDS ORDERED: Aspirin 81 mg Enteric Coated Tablet PO SCH (09:00)
[2019-01-13] MEDS ORDERED: Lidocaine 5% Patch TD SCH (09:00)
[2019-01-13] MEDS ORDERED: Spironolactone 25 MG TAB PO SCH (09:00)
[2019-01-13] MEDS ORDERED: Lidocaine Patch Removal 1 EACH TOP SCH ×2 (09:00→21:00)
[2019-01-13] MEDS: Famotidine 20 MG TAB PO SCH (09:05)
[2019-01-13] MEDS: Carvedilol 3.125 MG TAB PO SCH (09:06)
[2019-01-13] MEDS: PATIENT'S HOME MEDICATION PO SCH (09:06)
--- NOTE | 2019-01-13 09:14 | PRG ---
DATE OF SERVICE: SUBJECTIVE: Ms. Matute is doing much better today. She states she is back to baseline. She has had diuresis of 1 L. She is breathing much better. No chest pain or pressure noted. Her troponins were negative. OBJECTIVE: VITAL SIGNS: Blood pressure 102/55, pulse 62, temperature 97.6. LUNGS: Clear to auscultation. HEART: Regular rate and rhythm. ABDOMEN: Soft, nontender, nondistended. EXTREMITIES: No edema. PERTINENT LABORATORY DATA: Hemoglobin 11.1. Creatinine 0.93. IMPRESSION: 1. Acute on chronic systolic heart failure. 2. Coronary artery disease. 3. Status post bypass surgery. 4. Previous myocardial infarction. 5. Status post stent placement. RECOMMENDATIONS: Ms. Matute came in fluid overloaded. Her BNP was elevated at 1154. She states she is back to baseline. I did state she may need one more day in the hospital for further diuresis. She states she is good enough and would like to go home this afternoon. From my standpoint, we would continue aspirin, atorvastatin, carvedilol, Brilinta, and Entresto in addition to spironolactone. I counseled her on 2 L of fluid per day in addition to decreased salt intake. I would also recommend she be seen and evaluated in the [facility]. Otherwise, I have no further recommendations. Plan is to follow up with us in the office. Job ID: [id number]
[2019-01-13 15:31] VITALS: BP 125/61; TEMP 97.5
[2019-01-13] MEDS ORDERED: Atorvastatin Calcium 20 MG TAB PO SCH (21:00)
[2019-01-13] MEDS ORDERED: Nitroglycerin 0.2mg/Hour PATCH TD SCH (21:00)
== END 2019-01-13 16:12 | disposition home or self-care (01) ==
LOC: ERS 11:34 → 2SW 15:40
PROVIDERS: ADMIT Internal Medicine; ATTEND Internal Medicine
DX: I11.0 Hypertensive heart disease with heart failure (principal); I50.23 Acute on chronic systolic (congestive) heart failure; I25.10 Atherosclerotic heart disease of native coronary artery without angina pectoris; I25.2 Old myocardial infarction; E87.70 Fluid overload, unspecified; E03.9 Hypothyroidism, unspecified; I25.5 Ischemic cardiomyopathy; E10.9 Type 1 diabetes mellitus without complications; Z79.02 Long term (current) use of antithrombotics/antiplatelets; Z79.4 Long term (current) use of insulin; Z79.82 Long term (current) use of aspirin; Z79.899 Other long term (current) drug therapy; Z88.5 Allergy status to narcotic agent; Z88.8 Allergy status to other drugs, medicaments and biological substances; Z95.1 Presence of aortocoronary bypass graft; Z95.5 Presence of coronary angioplasty implant and graft
CPT/HCPCS: 36415; 36416; 71045; 80048; 80053; 80061; 83605; 83735; 83880; 84484; 85025; 93005; 94640; 96374; 96376; G0378; J1940; J7620

== ENCOUNTER 2019-05-02 14:04 | Outpatient (CLI) | payer BC ==
--- NOTE | 2019-05-02 15:38 | RAD ---
PA AND LATERAL CHEST: History: Upper respiratory infection, cough. Comparison: 05-21-18 FINDINGS: Heart size is enlarged with post op sternotomy change. A pacemaker is present. Pulmonary vessels are engorged. Mildly increased perihilar lung markings. IMPRESSION: Cardiomegaly with some mild pulmonary edema changes. POS: [facility]
== END 2019-05-02 14:05 | disposition home or self-care (01) ==
LOC: BICRAD 14:04
PROVIDERS: ATTEND Physician Assistant Medical
DX: J06.9 Acute upper respiratory infection, unspecified (principal); I50.9 Heart failure, unspecified; I51.7 Cardiomegaly
CPT/HCPCS: 71046

== ENCOUNTER 2020-11-28 11:37 | Outpatient (CLI) | payer BC | END 2020-11-28 11:38 | disposition home or self-care (01) | LOC: BICRAD 11:37 | PROVIDERS: ATTEND Family Medicine | DX: J06.9 Acute upper respiratory infection, unspecified (principal) | CPT/HCPCS: 71046 ==

== ENCOUNTER 2022-04-22 23:50 | Emergency (ER) | payer BC ==
[2022-04-23] MEDS ORDERED: Acetaminophen 500 MG TAB ONE (00:59)
[2022-04-23] MEDS ORDERED: Vancomycin 1 GM/200 ML (FROZEN) BAG ONE (00:59)
[2022-04-23] MEDS ORDERED: Cefepime 2 GM VIAL ONE (00:59)
[2022-04-23 04:53] LABS: ALT (SGPT) 13 U/L (8-55); AST (SGOT) 39 U/L (5-34); Alkaline Phosphatase 101 U/L (40-110); Anion Gap 19 mmol/L (10-20); BUN (Urea Nitrogen) 41 mg/dL (9.8-20.1); Bilirubin, Total 0.2 mg/dL (0.2-1.2); Calc. Creatinine Clearance 0 mL/min (70-130); Calcium 9.4 mg/dL (7.8-10.44); Carbon Dioxide 20 mmol/L (23-31); Chloride 102 mmol/L (98-107); Estimated GFR 25; Globulin 4.2 g/dL (2.4-3.5); Glucose 154 mg/dL (80-115); Lipase 18 U/L (8-78); Potassium 4.6 mmol/L (3.5-5.1); Protein, Total 8.2 g/dL (5.8-8.1); Sodium 136 mmol/L (136-145)
[2022-04-23 06:18] LABS: #Eosinphils 0.1 thou/uL (0.0-0.7); #Lymphocytes 1.3 thou/uL (1.20-3.40); #Neutrophils 12.7 thou/uL (1.40-6.50); %Basophils 0.2 % (0.0-1.0); %Eosinophils 0.4 % (0.0-10.0); %Lymphocytes 8.8 % (21.0-51.0); %Monocytes 6.5 % (0.0-10.0); %Neutrophils 84.2 % (42.0-75.0); Hemoglobin 11.8 g/dL (12.0-16.0); Mean Corpuscular HGB CONC 33.5 g/dL (32.0-36.0); Mean Corpuscular Hemoglobin 24.3 pg (27.0-31.0); Mean Corpuscular Volume 72.5 fl (78.0-98.0); Mean Platelet Volume 7.3 fL (7.4-10.4); Platelet Count 435 10x3/uL (130-400); RBC Distribution Width 15.5 % (11.5-14.5); Red Blood Cell (RBC) Count 4.84 mill/uL (4.20-5.40); White Blood Cell (WBC) Count 15.1 10x3/uL (4.8-10.8)
[2022-04-23 07:12] LABS: SARS-CoV-2 NAA Rapid Test Not Detected (NotDetected)
[2022-04-23 07:16] LABS: Bilirubin Negative (Negative); Blood, Urine Small (Negative); Glucose, Urine (Dipstick) 500 mg/dL (Negative); Ketone, Urine Trace mg/dL (Negative); Leukocyte Negative (Negative); Nitrite Negative (Negative); Protein, Urine (Dipstick) > or equal to 300 mg/dL (Neg-Trace); Specific Gravity, Urine 1.025 (1.005-1.030); Urobilinogen 0.2 mg/dL (Less than 2)
[2022-04-23 07:17] LABS: Bacteria/HPF Rare-Few HPF (None Seen); Clarity Clear (Clear); RBC/HPF 0-3 HPF (0-3); Squamous Epithelial 0-3 HPF (0-3); WBC/HPF 0-3 HPF (0-3)
== END 2022-04-23 06:11 | disposition home or self-care (01) ==
LOC: ERS 23:50
DX: R50.9 Fever, unspecified (principal); I11.0 Hypertensive heart disease with heart failure; I50.9 Heart failure, unspecified; I25.2 Old myocardial infarction; E03.9 Hypothyroidism, unspecified; E10.9 Type 1 diabetes mellitus without complications; Z20.822 Contact with and (suspected) exposure to COVID-19; Z79.899 Other long term (current) drug therapy
CPT/HCPCS: 36415; 71045; 74176; 80053; 81003; 81015; 83605; 83690; 83880; 84484; 85025; 87040; 93005; 96374; 96375; J0692; J3370-JW

== ENCOUNTER 2024-02-12 22:05 | Inpatient (IN) | payer BC ==
[2024-02-12 22:36] VITALS: BMI 28.8
[2024-02-12] MEDS ORDERED: Acetaminophen 650 MG Suppository PR PRN (23:55)
[2024-02-13] MEDS: Acetaminophen 325 MG TAB PO SCH (00:45)
[2024-02-13] MEDS: Piperacillin/Tazobactam 4.5 GM in Sodium Chloride 0.9% 100 ML IVPB SCH (05:18)
[2024-02-13] MEDS ORDERED: Piperacillin/Tazobactam 4.5 GM in Sodium Chloride 0.9% 100 ML IVPB SCH (06:00)
[2024-02-13 06:18] LABS: #Basophils Less than 0.03 10x3/uL (0.0-0.2); %Basophils 0.3 % (0.0-1.0); %Eosinophils 0.5 % (0.0-10.0); %Lymphocytes 13.3 % (21.0-51.0); %Monocytes 14.2 % (0.0-10.0); %Neutrophils 70.9 % (42.0-75.0); Hematocrit 39.1 % (36.0-47.0); Hemoglobin 12.3 g/dL (12.0-16.0); Mean Corpuscular HGB CONC 31.5 g/dL (32.0-36.0); Mean Corpuscular Hemoglobin 23.6 pg (27.0-31.0); Mean Corpuscular Volume 74.9 fL (78.0-98.0); Mean Platelet Volume 9.3 fL (7.4-10.4); Platelet Count 219 10x3/uL (130-400); RBC Distribution Width 16.8 % (11.5-14.5); Red Blood Cell (RBC) Count 5.22 mill/uL (4.20-5.40)
[2024-02-13 06:35] LABS: ALT (SGPT) 19 U/L (8-55); AST (SGOT) 48 U/L (5-34); Albumin 2.8 g/dL (3.4-4.8); Alkaline Phosphatase 60 U/L (40-110); Anion Gap 17 mmol/L (10-20); BUN (Urea Nitrogen) 26 mg/dL (9.8-20.1); Bilirubin, Total 0.3 mg/dL (0.2-1.2); Calc. Creatinine Clearance 40 mL/min (70-130); Calcium 8.3 mg/dL (7.8-10.44); Carbon Dioxide 15 mmol/L (23-31); Chloride 104 mmol/L (98-107); Estimated GFR 37; Globulin 3.4 g/dL (2.4-3.5); Glucose 184 mg/dL (80-115); Protein, Total 6.2 g/dL (5.8-8.1); Sodium 132 mmol/L (136-145)
[2024-02-13 07:12] LABS: Anisocytosis SLIGHT = 6-15 cells HPF (0-5); Macrocytosis SLIGHT = 6-15 cells HPF (0-5); Platelet Adequacy Comment Platelets Decreased; Polychromasia SLIGHT = 2-3 cells HPF (0-2)
[2024-02-13] MEDS: Piperacillin/Tazobactam 3.375 GM in Sodium Chloride 0.9% 100 ML IVPB SCH (10:32)
[2024-02-13] MEDS: Ezetimibe 10 MG TAB PO SCH (13:19)
[2024-02-13] MEDS: Dapagliflozin Propanediol 10 MG TAB PO SCH (13:19)
[2024-02-13] MEDS: Atovaquone 750 MG/5 ML UDCUP PO SCH ×2 (14:57→17:24)
[2024-02-13] MEDS: predniSONE 20 MG TAB PO SCH (14:58)
[2024-02-13] MEDS: Tacrolimus 1 MG CAP PO SCH (15:00)
[2024-02-13] MEDS: Carvedilol 25 MG TAB PO SCH (20:12)
[2024-02-13 20:48] LABS: Influenza B by NAA Not Detected (NotDetected); SARS-CoV-2 NAA Rapid Test Not Detected (NotDetected)
[2024-02-13 20:49] LABS: Influenza A by NAA DETECTED (NotDetected)
[2024-02-14] MEDS: Benzonatate 100 MG CAP PO SCH (02:03)
[2024-02-14] MEDS ORDERED: Ondansetron ODT 4 MG TAB PO PRN (06:22)
[2024-02-14] MEDS: Levothyroxine Sodium 75 MCG TAB PO SCH (06:29)
[2024-02-14] MEDS: Ondansetron PF 4 MG/2 ML Vial IVP PRN (06:29)
[2024-02-14] MEDS: predniSONE 20 MG TAB PO SCH (10:33)
[2024-02-14 11:41] LABS: Hematocrit 34.9 % (36.0-47.0); Hemoglobin 11.2 g/dL (12.0-16.0); Mean Corpuscular HGB CONC 32.1 g/dL (32.0-36.0); Mean Corpuscular Hemoglobin 23.5 pg (27.0-31.0); Mean Corpuscular Volume 73.2 fL (78.0-98.0); Platelet Count 210 10x3/uL (130-400); RBC Distribution Width 16.7 % (11.5-14.5); Red Blood Cell (RBC) Count 4.77 mill/uL (4.20-5.40)
[2024-02-14 11:49] LABS: ALT (SGPT) 18 U/L (8-55); AST (SGOT) 34 U/L (5-34); Albumin 2.9 g/dL (3.4-4.8); Alkaline Phosphatase 55 U/L (40-110); Anion Gap 15 mmol/L (10-20); BUN (Urea Nitrogen) 25 mg/dL (9.8-20.1); Bilirubin, Total 0.3 mg/dL (0.2-1.2); Calc. Creatinine Clearance 42 mL/min (70-130); Calcium 8.6 mg/dL (7.8-10.44); Carbon Dioxide 20 mmol/L (23-31); Chloride 104 mmol/L (98-107); Estimated GFR 39; Globulin 3.4 g/dL (2.4-3.5); Glucose 178 mg/dL (80-115); Potassium 3.2 mmol/L (3.5-5.1); Protein, Total 6.3 g/dL (5.8-8.1); Sodium 136 mmol/L (136-145)
[2024-02-14] MEDS: Potassium Chloride 20 MEQ TAB PO SCH (12:23)
[2024-02-14 12:28] LABS: Burr Cells SLIGHT = 2-5 cells HPF (0-1); Ovalocytes SLIGHT = 2-5 cells HPF (0-1); Platelet Adequacy Comment Platelets Normal; Polychromasia SLIGHT = 2-3 cells HPF (0-2)
[2024-02-14 12:32] LABS: #Basophils Less than 0.03 10x3/uL (0.0-0.2); #Eosinophils Less than 0.03 10x3/uL (0.0-0.7); %Basophils 0.2 % (0.0-1.0); %Lymphocytes 12.4 % (21.0-51.0); %Monocytes 10.8 % (0.0-10.0); %Neutrophils 76.2 % (42.0-75.0)
[2024-02-15] MEDS: Potassium Bicarbonate/Cit Ac 20 MEQ TAB PO SCH (06:55)
[2024-02-15] MEDS: Potassium Chloride 20 MEQ TAB PO SCH (07:45)
[2024-02-15 08:32] VITALS: BP 134/83; TEMP 98.1
[2024-02-15] MEDS: Amoxicillin/Potassium Clav 875 MG TAB PO SCH (08:47)
== END 2024-02-15 15:25 | disposition home or self-care (01) | DRG 690 ==
LOC: 2NO 22:05
PROVIDERS: ADMIT Family Medicine; ATTEND Family Medicine
DX: N39.0 Urinary tract infection, site not specified (principal); K57.92 Diverticulitis of intestine, part unspecified, without perforation or abscess without bleeding; Z94.1 Heart transplant status; Z88.8 Allergy status to other drugs, medicaments and biological substances; E03.9 Hypothyroidism, unspecified; I25.10 Atherosclerotic heart disease of native coronary artery without angina pectoris; I50.9 Heart failure, unspecified; I11.0 Hypertensive heart disease with heart failure; Z90.49 Acquired absence of other specified parts of digestive tract; Z95.1 Presence of aortocoronary bypass graft; E11.9 Type 2 diabetes mellitus without complications; M35.3 Polymyalgia rheumatica; J10.1 Influenza due to other identified influenza virus with other respiratory manifestations; E87.6 Hypokalemia; Z79.899 Other long term (current) drug therapy
CPT/HCPCS: 36415; 36416; 71045; 74177; 80053; 80197; 81001; 82010; 82805; 83605; 83690; 83735; 84484; 85025; 87040; 87077; 87086; 87186; 87428; 87497; 93005; 96374; 96375; J2405; J2543; J3010; J7507; J7512